=== PATIENT | male | born 1960 | race Caucasian/White ===

== ENCOUNTER 2020-04-11 08:01 | Outpatient (REF) | payer BC, SELFPAY ==
[2020-04-11 11:09] LABS: MANUAL DIFF FLAG NO
[2020-04-11 11:13] LABS: Basophils Percent Auto 0.7 % (0-2); Eosinophils Absolute Auto 0.3 X10*3/uL (0.0-0.4); Eosinophils Percent Auto 4.5 % (0-4); Hematocrit 43.1 % (42-52); Hemoglobin 13.9 g/dl (14.0-18.0); Imm Gran Abs Auto 0.02 X10*3/uL (0.00-0.03); Imm Gran Pct Auto 0.3 % (0.0-0.4); Lymphocytes Absolute Auto 1.5 X10*3/uL (1.2-4.9); Lymphocytes Percent Auto 26.6 % (20-40); Mean Corpuscular HGB Conc 32.3 g/dl (31.0-36.0); Mean Corpuscular Hemoglobin 29.9 pg (27.0-33.0); Mean Corpuscular Volume 92.7 fL (80-98); Mean Platelet Volume 11.1 fL (9.4-12.4); Monocytes Absolute Auto 0.5 X10*3/uL (0.1-1.2); Monocytes Percent Auto 8.3 % (2-11); Neutrophils Absolute Auto 3.5 X10*3/uL (2.0-8.3); Neutrophils Percent Auto 59.6 % (45-73); Platelet Count 182 X10*3/uL (160-400); Red Blood Count 4.65 X10*6/uL (4.60-5.80); Red Cell Distribution Width 13.2 % (11.0-16.0); White Blood Count 5.8 X10*3/uL (4.8-10.8)
[2020-04-11 11:21] LABS: Glucose Urine UA NEG (NEG); Leukocyte Esterase Urine NEG (NEG); Nitrite Urine NEG (NEG); PH 5.5 (5.0-8.0); Specific Gravity - Urine >= 1.030 (1.005-1.025); Urine Blood 1+ (NEG); Urine Ketones NEG (NEG); Urine Protein NEG (NEG-TRACE)
[2020-04-11 11:25] LABS: Appearance Urine CLEAR; Color Urine YELLOW
[2020-04-11 11:33] LABS: Mucus Urine 2+ /LPF; Sperm Urine NOTED; WBC Urine 0-2 /HPF (0-4)
[2020-04-11 11:53] LABS: Alanine Aminotransferase 20 U/L (0-40); Albumin Level 4.2 g/dL (3.5-5.0); Alkaline Phosphatase 59 U/L (39-117); Anion Gap 12 (12-20); Aspartate Amino Transferase 19 U/L (5-37); Bilirubin Total 0.8 mg/dL (0.0-1.0); Blood Urea Nitrogen 15 mg/dL (9-16); Carbon Dioxide 30 mmol/L (22-29); Chloride 104 mmol/L (96-108); Cholesterol 219 mg/dL; Estimated Glomerular Filt Rate > 60; Glucose Fasting 84 mg/dL (60-99); HDL Cholesterol 83 mg/dL; LDL Cholesterol Calculated 117 mg/dl; Potassium 4.1 mmol/l (3.3-5.1); Sodium 142 mmol/L (135-145); Total Protein 6.6 g/dL (6.5-8.0); Triglycerides 97 mg/dL
[2020-04-11 11:56] LABS: Prostate Specific Antigen 0.79 ng/mL (<0.05-4.0); Thyroid Stimulating Hormone 0.84 uIU/mL (0.32-4.0)
== END 2020-04-11 08:02 | disposition home or self-care (01) ==
LOC: HO.HMGCLDS 08:01
PROVIDERS: PCP Internal Medicine; Visit Provider Internal Medicine
DX: E78.00 Pure hypercholesterolemia, unspecified (principal); Z00.00 Encounter for general adult medical examination without abnormal findings
CPT/HCPCS: 36415; 80053; 80061; 81001; 84153; 84443; 85025

== ENCOUNTER 2020-04-20 15:54 | Outpatient (REF) | payer BC, SELFPAY ==
--- NOTE | 2020-04-20 15:58 | XR_ITS ---
EXAMINATION: XR FOOT, RIGHT CLINICAL INFORMATION: S99.929A - Unspecified injury of right foot COMPARISON: None TECHNIQUE: Right foot is imaged in 3 views. FINDINGS: There is suspicion of nondisplaced hairline fracture base fifth metatarsal best appreciated on the lateral view. Recommend correlation with patient's symptoms and clinical exam. There is no distraction or displacement. No dislocation or destructive process. The remainder of the bony structures appear intact. There is borderline posterior calcaneal spur. The retrocalcaneal recess is preserved. The subtalar joint appears normal. XR/XR foot RT min 3V IMPRESSION: Suspect nondisplaced hairline fracture base fifth metatarsal, best appreciated on lateral view. Recommend correlation with patient's symptoms and clinical exam.
== END 2020-04-20 15:55 | disposition home or self-care (01) ==
LOC: HO.HMGCX 15:54
PROVIDERS: PCP Internal Medicine; Visit Provider Nurse Practitioner Family
DX: S99.921A Unspecified injury of right foot, initial encounter (principal); X58.XXXA Exposure to other specified factors, initial encounter; Y93.9 Activity, unspecified; Y92.9 Unspecified place or not applicable; Y99.8 Other external cause status
CPT/HCPCS: 73630

== ENCOUNTER → 2020-04-25 09:31 | Outpatient (BNVA) | payer BC, SELFPAY | PROVIDERS: PCP Internal Medicine; Visit Provider Physician Assistant | DX: Z76.89 Persons encountering health services in other specified circumstances (principal) ==

== ENCOUNTER 2020-09-15 07:38 | Outpatient (REF) | payer BC, SELFPAY ==
[2020-09-16 09:06] LABS: Herpes Simplex Type 1 IgG 2.71 index; Herpes Simplex Type 2 IgG <0.90 index
== END 2020-09-15 07:39 | disposition home or self-care (01) ==
LOC: HO.HMGCLDS 07:38
PROVIDERS: PCP Internal Medicine; Visit Provider Internal Medicine
DX: A60.00 Herpesviral infection of urogenital system, unspecified (principal)
CPT/HCPCS: 36415; 86695; 86696

== ENCOUNTER 2021-04-11 06:03 | Day surgery (SDC) | payer BC, SELFPAY ==
[2021-04-04 14:45] VITALS: BMI 22.2
[2021-04-11 06:39] VITALS: BP 124/76; PULSE 58; RESP 18; TEMP 36.6; O2SAT 98
--- NOTE | 2021-04-11 07:19 | HO.ANESPROP2 ---
FORMERLY [facility] Active Problems Active Problems: All Active Problems (Updated 04/04/21 @ 14:40 by Barbi Yan RN) Foot injury (Acute) Metatarsal fracture (Acute) Past Medical History Medical History Bakers cyst Hyperthermia Inguinal hernia Renal calculi Surgical History Surgical History H/O colonoscopy History of carpal tunnel release Hx of right inguinal hernia repair Hx of tonsillectomy History of Problems with Anesthesia: No Social History Social History Alcohol intake: current Alcohol intake frequency: a few times a week Patient Tobacco Use Status: Never used Tobacco Have you been hit, kicked, punched, or otherwise hurt by someone within the past year? If so, by whom?: No Are you DNR?: No Advance Directives Information Provided: Yes (informational brochure mailed) Advance Directives on File: No Recently lost weight without trying: No Nutrition Risks: No Nutritional Risk Current occupation: professor [employer] Allergies Allergy/AdvReac Type Severity Reaction Status Date / Time cefdinir Allergy Intermediate Unknown Verified 04/20/20 15:18 Exam Exam Date and Time: April 11, 2021 0719 Height,Weight and Vital Signs: Height 5 ft 5.5 in Weight 61.689 kg Last Vital Signs Temp 97.8 F 04/11/21 06:39 Pulse 58 04/11/21 06:39 Resp 18 04/11/21 06:39 BP 124/76 04/11/21 06:39 Pulse Ox 98 04/11/21 06:39 Airway Mallampati Class: II TM Dist: >3cm Neck ROM: Full Heart: RRR Lungs: CTA Assessment and Plan Assessment Anesthesia Assessment: Anesthesia Plan Discussed and Chart Reviewed Final Anesthetic Review History of Problems with Anesthesia: No NPO: Yes ASA Class: II Final Preanesthetic Review: Meds/Allgs Chart Reviewed, Consent Obtained/Reviewed and Anes Risks/Benef Reviewed Patient Risk: Low Procedure Risk: Low Anesthetic Plan Anesthetic Plan: MAC: Disposition: Standard PACU
[2021-04-11] MEDS: Lactated Ringers 1,000 ML 50 ML IVCONT (07:24)
--- NOTE | 2021-04-11 07:30 | MHC.SHP ---
Pre-Procedural Eval Section A Date of Service: 04/11/21 Section B Chief Complaint: screening Details of Present Illness: see H&P no changes Relevant Family History (Specify if Yes): No Relevant Social History: None Present Medications: see Short Stay Collaborative assessment Medical History: No relevant PMH History of Previous Operations: No relevant previous surgery Allergies: Allergies Allergy/AdvReac Type Severity Reaction Status Date / Time cefdinir Allergy Intermediate Unknown Verified 04/20/20 15:18 Review of Systems Sugical H&P ROS: Negative: Constitution, Cardiovascular, Respiratory, Neurological, Psychiatric, Hem-Onc, Allergic/Immunologic, Gastrointestinal, Genitourinary, Musculoskeletal, Integumentary, Endocrine and Eyes/Ears/Nose/Throat Exam Surgical H&P Exam: Normal: HEENT, Normal: Heart, Normal: Lungs, Normal: Extremities, Normal: Abdomen, Normal: Skin and Normal: Neurological Plan Diagnosis/Plan: Unchanged I have reviewed the history and physical and performed a pertinent physical examination on my patient. No changes have occurred unless specified.
--- NOTE | 2021-04-11 08:09 | PM.OP ---
Brief Operative Note Date of Service: 04/11/21 Pre-op diagnosis: screening Post-op diagnosis: same (colon polyp) Procedure: colonoscopy Surgeon: Sd Armstrong Anesthesia: MAC Was an Fourth Hand used for this Procedure?: No Estimated blood loss (mL): 0 Pathology: other (polyp 15 cm) Condition: stable Disposition: PACU
[2021-04-11 08:14] VITALS: BP 123/63; PULSE 80; RESP 18; TEMP 36.2; O2SAT 95
[2021-04-11 08:29] VITALS: BP 125/66; PULSE 53; RESP 18; O2SAT 94
[2021-04-11 08:44] VITALS: BP 124/81; PULSE 55; RESP 18; O2SAT 97
[2021-04-11 08:59] VITALS: BP 126/72; PULSE 50; RESP 17; O2SAT 97
--- NOTE | 2021-04-11 09:57 | OP_ITS ---
SURGEON: Sd Armstrong MD INDICATIONS: Colon cancer screening and prior history of adenomatous colon polyps. PREOPERATIVE DIAGNOSIS: POSTOPERATIVE DIAGNOSIS: PROCEDURE PERFORMED: Colonoscopy to the terminal ileum with snare polypectomy. ESTIMATED BLOOD LOSS: COMPLICATIONS: ANESTHESIA: ASSISTANTS: SPECIMENS: MEDICATIONS: Monitored anesthesia care. DESCRIPTION OF PROCEDURE: History and physical performed. The risks and benefits of the procedure were explained to the patient. Informed consent was obtained. The patient was placed in the left lateral decubitus position. A digital rectal exam was performed and was found to be normal. The Olympus pediatric video colonoscope was introduced into the rectum and advanced to the cecum without difficulty. The cecum was identified by transillumination, palpation, and identification of ileocecal valve. Examination was performed and the scope was removed. He tolerated the procedure well and was taken to recovery area in stable condition. FINDINGS: The terminal ileum was normal. The visualized colonic mucosa was normal. The quality of the prep was good. At 15 cm from the anal verge, was a single 6 mm polyp. This was removed with a snare and recovered via suction. Retroflexed examination showed internal hemorrhoids or moderate in size. IMPRESSION: Colon polyp. RECOMMENDATION: Follow up the biopsy results. MD VIDAL Iyer/BRITTANEY / [id number]
== END 2021-04-11 09:40 | disposition home or self-care (01) ==
PROVIDERS: PCP Internal Medicine; Visit Provider Internal Medicine Gastroenterology
PROC: 0DJD8ZZ Inspection of Lower Intestinal Tract, Via Natural or Artificial Opening Endoscopic (ICD-10-PCS; CPT 45378; principal; 2021-04-11 07:30)
DX: Z12.11 Encounter for screening for malignant neoplasm of colon (principal); Z86.010 Personal history of colon polyps; Z83.71 Family history of colonic polyps; D12.7 Benign neoplasm of rectosigmoid junction; K64.8 Other hemorrhoids; Z87.442 Personal history of urinary calculi
CPT/HCPCS: 45385; 88305

== ENCOUNTER 2021-10-24 06:16 | Outpatient (REF) | payer BC, SELFPAY ==
[2021-10-24 11:29] LABS: MANUAL DIFF FLAG NO
[2021-10-24 11:34] LABS: Appearance Urine CLEAR; Color Urine YELLOW; Glucose Urine UA NEG (NEG); Leukocyte Esterase Urine NEG (NEG); Nitrite Urine NEG (NEG); PH 5.5 (5.0-8.0); Specific Gravity - Urine >= 1.030 (1.005-1.025); Urine Blood TRACE (NEG); Urine Ketones NEG (NEG); Urine Protein NEG (NEG-TRACE)
[2021-10-24 11:50] LABS: Basophils Percent Auto 0.8 % (0-2); Eosinophils Absolute Auto 0.2 X10*3/uL (0.0-0.4); Eosinophils Percent Auto 3.3 % (0-4); Hematocrit 42.8 % (42.0-52.0); Hemoglobin 14.1 g/dl (14.0-18.0); Imm Gran Abs Auto 0.02 X10*3/uL (0.00-0.03); Imm Gran Pct Auto 0.4 % (0.0-0.4); Lymphocytes Absolute Auto 1.9 X10*3/uL (1.2-4.9); Lymphocytes Percent Auto 36.8 % (20-40); Mean Corpuscular HGB Conc 32.9 g/dl (31.0-36.0); Mean Corpuscular Hemoglobin 29.1 pg (27.0-33.0); Mean Corpuscular Volume 88.2 fL (80.0-98.0); Mean Platelet Volume 11.7 fL (9.4-12.4); Monocytes Absolute Auto 0.5 X10*3/uL (0.1-1.2); Neutrophils Absolute Auto 2.5 x10*3/uL (2.0-8.3); Neutrophils Percent Auto 49.7 % (45-73); Platelet Count 175 X10*3/uL (160-400); Red Blood Count 4.85 X10*6/uL (4.60-5.80); Red Cell Distribution Width 13.2 % (11.0-16.0); White Blood Count 5.1 X10*3/uL (4.8-10.8)
[2021-10-24 11:56] LABS: RBC Urine 0-2 /HPF (0); WBC Urine 0 /HPF (0-4)
[2021-10-24 11:57] LABS: Calcium Oxalate Crystals Urine TRACE /LPF; Mucus Urine TRACE /LPF
[2021-10-24 13:01] LABS: Alanine Aminotransferase 18 U/L (0-40); Albumin Level 4.1 g/dL (3.5-5.0); Alkaline Phosphatase 74 U/L (39-117); Anion Gap 11 (12-20); Aspartate Amino Transferase 16 U/L (5-37); Bilirubin Total 0.5 mg/dL (0.0-1.0); Blood Urea Nitrogen 16 mg/dL (9-16); Calcium 8.9 mg/dL (8.4-10.2); Carbon Dioxide 25 mmol/L (22-29); Chloride 106 mmol/L (96-108); Cholesterol 218 mg/dL; Estimated Glomerular Filt Rate > 60; Glucose Fasting 91 mg/dL (60-99); HDL Cholesterol 69 mg/dL; LDL Cholesterol Calculated 123 mg/dl; Potassium 4.1 mmol/L (3.3-5.1); Sodium 138 mmol/L (135-145); Total Protein 6.5 g/dL (6.5-8.0); Triglycerides 131 mg/dL
[2021-10-24 13:21] LABS: Thyroid Stimulating Hormone 1.17 uIU/mL (0.32-4.0); Vitamin D 25-OH Total 30.6 ng/mL (>30)
== END 2021-10-24 06:17 | disposition home or self-care (01) ==
LOC: HO.HMGCLDS 06:16
PROVIDERS: Visit Provider Internal Medicine
DX: Z00.00 Encounter for general adult medical examination without abnormal findings (principal); E78.00 Pure hypercholesterolemia, unspecified; Z12.5 Encounter for screening for malignant neoplasm of prostate
CPT/HCPCS: 36415; 80053; 80061; 81001; 82306; 84153; 84443; 85025

== ENCOUNTER 2022-01-29 13:33 | Outpatient (REF) | payer BC, SELFPAY | END 2022-01-29 13:34 | disposition home or self-care (01) | LOC: HO.SH 13:33 | PROVIDERS: Visit Provider Internal Medicine | DX: Z01.10 Encounter for examination of ears and hearing without abnormal findings (principal); H90.3 Sensorineural hearing loss, bilateral | CPT/HCPCS: 92557; 92567 ==

== ENCOUNTER 2022-09-06 08:15 | Outpatient (REF) | payer BC, SELFPAY ==
--- NOTE | ~2022-09-06 | XR_ITS ---
EXAMINATION: Bilateral hand. CLINICAL INDICATIONS: Pain bilateral fingers. COMPARISON: None. TECHNIQUE: 3 views each hand. FINDINGS: Right hand: There is severe loss of PIP and DIP joint spaces without bony erosive changes. The MCP joint space is normal. No visible acute fracture, dislocation or subluxation seen. Left hand: There is severe loss of PIP and DIP joint space without bony erosive changes. There is mild lateral subluxation deformity DIP joint second digit. The MCP and CMCP joint spaces are maintained normal. No bony erosive changes. No loose bodies. No spurring or fracture. The soft tissues are normal. 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 There is no visible acute fracture or dislocation seen.
--- NOTE | ~2022-09-06 | XR_ITS ---
EXAMINATION: Bilateral hand. CLINICAL INDICATIONS: Pain bilateral fingers. COMPARISON: None. TECHNIQUE: 3 views each hand. FINDINGS: Right hand: There is severe loss of PIP and DIP joint spaces without bony erosive changes. The MCP joint space is normal. No visible acute fracture, dislocation or subluxation seen. Left hand: There is severe loss of PIP and DIP joint space without bony erosive changes. There is mild lateral subluxation deformity DIP joint second digit. The MCP and CMCP joint spaces are maintained normal. No bony erosive changes. No loose bodies. No spurring or fracture. The soft tissues are normal. XR/XR hand RT min 3V IMPRESSION: Degenerative osteoarthritic changes PIP and DIP joints both hands. There is no visible acute fracture or dislocation seen.
[2022-09-06 11:12] LABS: MANUAL DIFF FLAG NO
[2022-09-06 11:26] LABS: Appearance Urine Clear; Color Urine Yellow; Glucose Urine UA Negative (Negative); Leukocyte Esterase Urine Negative (Negative); Nitrite Urine Negative (Negative); PH 6.5 (5.0-9.0); Urine Blood Negative (Negative); Urine Ketones Negative (Negative); Urine Protein Negative (Neg-Trace)
[2022-09-06 11:32] LABS: Bacteria Urine None Seen (None Seen); Hyaline Casts Urine 0-2 /LPF (0-2); Squamous Epithelial Cell Urine 0-2 /HPF (0-2); WBC Urine 0-5 /HPF (0-5)
[2022-09-06 11:34] LABS: Basophils Percent Auto 0.8 % (0-2); Eosinophils Absolute Auto 0.1 X10*3/uL (0.0-0.4); Eosinophils Percent Auto 2.1 % (0-4); Hematocrit 43.3 % (42.0-52.0); Hemoglobin 14.3 g/dl (14.0-18.0); Imm Gran Abs Auto 0.01 X10*3/uL (0.00-0.03); Imm Gran Pct Auto 0.2 % (0.0-0.4); Lymphocytes Absolute Auto 1.6 X10*3/uL (1.2-4.9); Lymphocytes Percent Auto 32.6 % (20-40); Mean Corpuscular Hemoglobin 29.4 pg (27.0-33.0); Mean Corpuscular Volume 88.9 fL (80.0-98.0); Mean Platelet Volume 11.2 fL (9.4-12.4); Monocytes Absolute Auto 0.4 X10*3/uL (0.1-1.2); Monocytes Percent Auto 8.2 % (2-11); Neutrophils Absolute Auto 2.7 x10*3/uL (2.0-8.3); Neutrophils Percent Auto 56.1 % (45-73); Platelet Count 185 X10*3/uL (160-400); Red Blood Count 4.87 X10*6/uL (4.60-5.80); Red Cell Distribution Width 13.1 % (11.0-16.0); White Blood Count 4.8 X10*3/uL (4.8-10.8)
[2022-09-06 12:26] LABS: Erythrocyte Sedimentation Rate 2 MM/HR (0-15)
[2022-09-06 12:37] LABS: Alanine Aminotransferase 19 U/L (0-40); Albumin Level 4.2 g/dL (3.5-5.0); Alkaline Phosphatase 70 U/L (39-117); Anion Gap 10 (12-20); Aspartate Amino Transferase 20 U/L (5-37); Bilirubin Total 0.8 mg/dL (0.0-1.0); Blood Urea Nitrogen 19 mg/dL (9-16); C Reactive Protein < 0.10 mg/dL (< or = 0.50); Calcium 9.7 mg/dL (8.4-10.2); Carbon Dioxide 28 mmol/L (22-29); Chloride 106 mmol/L (96-108); Estimated Glomerular Filt Rate > 60; Glucose Random 82 mg/dL (60-115); Rheumatoid Factor < 13.0 IU/mL (<15.0); Sodium 140 mmol/L (135-145); Total Protein 6.5 g/dL (6.5-8.0)
[2022-09-11 12:19] LABS: Anti Nuclear Antibody Screen NEGATIVE (NEGATIVE)
== END 2022-09-06 08:16 | disposition home or self-care (01) ==
LOC: HO.HMGCX 08:15
PROVIDERS: PCP Internal Medicine; Visit Provider Internal Medicine
DX: M79.645 Pain in left finger(s) (principal); M79.644 Pain in right finger(s)
CPT/HCPCS: 36415; 73130; 80053; 81001; 85025; 85652; 86038; 86140; 86431

== ENCOUNTER 2024-03-21 07:52 | Outpatient (REF) | payer BC, SELFPAY ==
[2024-03-21 11:12] LABS: MANUAL DIFF FLAG NO
[2024-03-21 11:30] LABS: Basophils Absolute Auto 0.1 X10*3/uL (0.0-0.2); Basophils Percent Auto 1.3 % (0-2); Eosinophils Absolute Auto 0.1 X10*3/uL (0.0-0.4); Eosinophils Percent Auto 2.4 % (0-4); Hematocrit 42.2 % (42.0-52.0); Hemoglobin 13.9 g/dl (14.0-18.0); Imm Gran Abs Auto 0.01 X10*3/uL (0.00-0.03); Imm Gran Pct Auto 0.2 % (0.0-0.4); Lymphocytes Absolute Auto 1.6 X10*3/uL (1.2-4.9); Lymphocytes Percent Auto 34.1 % (20-40); Mean Corpuscular HGB Conc 32.9 g/dl (31.0-36.0); Mean Corpuscular Hemoglobin 29.3 pg (27.0-33.0); Mean Corpuscular Volume 88.8 fL (80.0-98.0); Mean Platelet Volume 11.4 fL (9.4-12.4); Monocytes Absolute Auto 0.3 X10*3/uL (0.1-1.2); Monocytes Percent Auto 7.4 % (2-11); Neutrophils Absolute Auto 2.5 x10*3/uL (2.0-8.3); Neutrophils Percent Auto 54.6 % (45-73); Platelet Count 164 X10*3/uL (160-400); Red Blood Count 4.75 X10*6/uL (4.60-5.80); Red Cell Distribution Width 13.1 % (11.0-16.0); White Blood Count 4.6 X10*3/uL (4.8-10.8)
[2024-03-21 11:47] LABS: Alanine Aminotransferase 27 U/L (0-40); Albumin Level 4.2 g/dL (3.5-5.0); Alkaline Phosphatase 59 U/L (39-117); Anion Gap 8 (12-20); Aspartate Amino Transferase 25 U/L (5-37); Bilirubin Total 0.7 mg/dL (0.0-1.0); Blood Urea Nitrogen 16 mg/dL (9-16); Calcium 9.3 mg/dL (8.4-10.2); Carbon Dioxide 30 mmol/L (22-29); Chloride 106 mmol/L (96-108); Cholesterol 199 mg/dL (<200); Estimated Glomerular Filt Rate > 60; Glucose Fasting 86 mg/dL (60-99); HDL Cholesterol 73 mg/dL (>40); LDL Cholesterol Calculated 103 mg/dL (<100); Potassium 3.9 mmol/L (3.3-5.1); Sodium 140 mmol/L (135-145); Total Protein 6.6 g/dL (6.5-8.0); Triglycerides 116 mg/dL (<150)
[2024-03-21 12:00] LABS: PSA,Total (Free>4and<10) 0.52 ng/mL (0.00-4.00)
[2024-03-21 12:20] LABS: Thyroid Stimulating Hormone 1.41 uIU/mL (0.32-4.0); Vitamin D 25-OH Total 34.2 ng/mL (>30)
== END 2024-03-21 07:53 | disposition home or self-care (01) ==
LOC: HO.HMGCLDS 07:52
PROVIDERS: PCP Internal Medicine; Visit Provider Internal Medicine
DX: Z00.00 Encounter for general adult medical examination without abnormal findings (principal); I73.00 Raynaud's syndrome without gangrene; N52.9 Male erectile dysfunction, unspecified; M15.8 Other polyosteoarthritis; R41.3 Other amnesia; Z12.5 Encounter for screening for malignant neoplasm of prostate
CPT/HCPCS: 36415; 80053; 80061; 82306; 84153; 84443; 85025

== ENCOUNTER 2024-11-03 10:35 | Outpatient (AMB) | payer BC, SELFPAY ==
--- NOTE | 2024-11-03 11:07 | A.OFFPC_ITS ---
Vital Signs 11/03/24 11:13 Height 5 ft 4.76 in Weight 139 lb BMI 23.3 BP 122/70 Respiration 16 Pulse 58 Pulse Source Pulse Oximeter Temp 98.0 F Temp Source Temporal Artery Scan Pulse Oximetry (%) 96 Oxygen Delivery Method Room Air Intake Visit Reasons: urinary hesitancy [employer] Supervisor Required: No Accompanied by: Self / Same As Patient Allergies cefdinir Allergy (Intermediate, Verified 11/10/24 08:40) Itching Medication List - Last Reconciled 11/10/24 by Jeff Melgoza MD amlodipine 2.5 mg PO DAILY tadalafil 2.5 mg PO DAILY 90 days tamsulosin (Flomax) 0.4 mg PO DAILY Tobacco use date assessed: 11/03/24 Dental Screening Dental Screen Date: 11/03/24 Did you have a dental visit in the last 12 months?: Yes Did you have a dental problem in the last 6 months where you did not have access to dental care?: No Was dental information given to patient?: Patient has dentist [facility] Medical History Prostatism Renal calculi Bakers cyst Inguinal hernia Hyperthermia Surgical History Hx of tonsillectomy Hx of right inguinal hernia repair H/O colonoscopy (~04/11/21) History of carpal tunnel release Family History Father Diabetes Mother Dementia Social History Housing: House Alcohol intake: current Alcohol intake frequency: a few times a month Patient Tobacco Use Status: Never used Tobacco service: No Current occupational status: employed Cognitive needs: No Hearing needs: No Vision needs: Yes (rx glasses) Questionnaire PHQ-9 Over the last 2 weeks, how often have you been bothered by any of the following problems? 1. Little interest or pleasure in doing things: not at all 2. Feeling down, depressed, or hopeless: not at all 3. Trouble falling or staying asleep, or sleeping too much: not at all 4. Feeling tired or having little energy: not at all 5. Poor appetite or overeating: not at all 6. Feeling bad about yourself - or that you are a failure or have let yourself or your family down: not at all 7. Trouble concentrating on things, such as reading the newspaper or watching television: not at all 8. Moving or speaking so slowly that other people could have noticed. Or the opposite - being so fidgety or restless that you have been moving around a lot more than usual: not at all 9. Thoughts that you would be better off or of hurting yourself in some way: not at all Total score: 0 Depression Screening Interpretation: Negative Depression Screening Done: Yes Source: Developed by Drs. Rolando Calloway, Juliette Mcnamara, Lebron Adames and colleagues, with an educational kashif from [employer]. Thrive Questionnaire Date Thrive assessed: 11/03/24 I am a: Patient What is your living situation today?: I have a steady place to live Within the past 12 months, did the food you bought not last and you didn't have the money to get more?: Never true Within the past 12 months, did you worry whether your food would run out before you got money to buy more?: Never true Do you have trouble paying for medicines?: No Do you have trouble getting transportation to medical appointments?: No Do you have trouble paying your heating and electricity bill?: No Do you have trouble taking care of your child, family member or friend?: No Do you have trouble with day-to-day activities such as bathing, preparing meals, shopping, managing finances, etc.?: No Are you currently unemployed and looking for a job?: No Are you interested in more education?: No Please select the resources that you would like help with: None Currently or been in a relationship where the following occur: No concerns reported THRIVE Score: 0 AUDIT C Alcohol Use Questionnaire (AUDIT-C) 1. How often do you have a drink containing alcohol?: 2-4 times a month 2. How many drinks containing alcohol do you have on a typical day when you are drinking?: 1 or 2 3. How often do you have six or more drinks on one occasion?: Never Total Score: 2 TETE-7 AMB Questionnaire TETE-7 Date TETE - 7 assessed: 11/03/24 Feeling nervous, anxious, or on edge: 0 = Not at all Not being able to stop or control worryin = Not at all Worrying too much about different things: 0 = Not at all Trouble relaxin = Not at all Being so restless that it is hard to sit still: 0 = Not at all Becoming easily annoyed or irritable: 0 = Not at all Feeling afraid as if something awful might happen: 0 = Not at all Total TETE-7 score (0-4 normal; 5-9 mild; 10-14 moderate; 15-21 severe): 0 Source: Developed by Drs. Rolando Calloway, Juliette Mcnamara, Lebron Adames and colleagues, with an educational kashif from [employer]. Physical exam (Primary Care) Vital Signs: Last Vital Signs Temp 98.0 F 11/03/24 11:13 Pulse 58 11/03/24 11:13 Resp 16 11/03/24 11:13 BP 122/70 11/03/24 11:13 Pulse Ox 96 11/03/24 11:13 Oxygen Delivery Method Room Air 11/03/24 11:13 Care Plan Goal for BP management: BP in range BMI result Body Mass Index 23.3 Tobacco/Smoking Status: Tobacco use Status Tobacco use date assessed 11/03/24 11/03/24 11:09 Patient Tobacco Use Status Never used Tobacco 11/03/24 11:20 PHQ-9: PHQ-9 Score PHQ-9: Total score 0 11/03/24 13:33 Depression Screening Interpretation: Negative Thrive Assessment: Date of Thrive Assessment Date Thrive assessed 11/03/24 11/03/24 11:09 Currently or been in a relationship where the following occur: No concerns reported Coding Level of Care Code New Pt Level 4 (16535) Complex EM visit Add On G2211 Diagnoses Prostatism N40.0 Assessment & Plan Assessment & Plan (1) Prostatism: Code(s): N40.0 - Benign prostatic hyperplasia without lower urinary tract symptoms Category: Medical Plan: History of Present Illness - The patient is a 64-year-old male presenting with urinary hesitancy and nocturia. - Reports urinary hesitancy and slow stream for approximately one year, with recent onset of nocturia over the past month or two. - Denies complete urinary retention or significant post-void dribbling. - Currently taking tadalafil daily for erectile dysfunction, which has improved erectile function but decreased orgasm intensity. - Undergoes colonoscopy on a five-year schedule as a preventative measure. - Engages in regular physical activity, including running, biking, and using an elliptical machine. 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 - Exercise: Engages in regular physical activity, including running, biking, and using an elliptical machine. Review of Systems - Genitourinary: Reports urinary hesitancy, slow stream, and nocturia. Denies complete urinary retention or significant post-void dribbling. - Reproductive: Reports erectile dysfunction with decreased orgasm intensity. Physical Exam General: Cooperative and healthy appearing Nutritional Appearance: Well nourished Orientation/consciousness: Patient oriented x3 Limitations: No limitations Head: Normal to inspection General: Appearance normal, both eyes and all related structures Neck: Normal visual inspection Chest: Normal palpation of entire chest wall Respiratory: Normal respiratory effort Neurology: Patient oriented x3 Results Plan 1. Benign Prostatic Hyperplasia - Initiate Flomax (tamsulosin) to improve urinary flow. - Conduct blood work to assess prostate health. 2. Erectile Dysfunction - Continue current tadalafil regimen. Discussion Notes I discussed with the patient the likely diagnosis of benign prostatic hyperplasia and the plan to initiate Flomax to improve urinary flow. We also talked about conducting blood work to assess prostate health. The patient was advised to continue the current tadalafil regimen for erectile dysfunction. We discussed the importance of using the patient portal for communication, especially while the patient is traveling. Patient Instructions - Start taking Flomax as prescribed to improve urinary flow. - Get blood work done today to check prostate health. - Continue taking tadalafil daily as prescribed. - Use the patient portal for communication while traveling. Orders: Orders C Reactive Protein 11/03/24 N40.0 - Benign prostatic hyperplasia without lower urinary tract symptoms Basic Metabolic Panel 11/03/24 N40.0 - Benign prostatic hyperplasia without lower urinary tract symptoms Complete Blood Count no Diff 11/03/24 N40.0 - Benign prostatic hyperplasia wi thout lower urinary tract symptoms Lipid Panel 11/03/24 N40.0 - Benign prostatic hyperplasia without lower urinary tract symptoms Prostate Specific Antigen Scr 11/03/24 N40.0 - Benign prostatic hyperplasia without lower urinary tract symptoms Liver Panel 11/03/24 N40.0 - Benign prostatic hyperplasia without lower urinary tract symptoms UA and rflx microscopic 11/03/24 N40.0 - Benign prostatic hyperplasia without lower urinary tract symptoms Medications: New tamsulosin (Flomax) 0.4 mg PO DAILY 90 caps 1RF tamsulosin (Flomax) 0.4 mg PO DAILY 90 caps 1RF
[2024-11-03 11:13] VITALS: BP 122/70; PULSE 58; RESP 16; TEMP 36.7; O2SAT 96; BMI 23.3
== END 2024-11-03 11:39 | disposition home or self-care (01) ==
LOC: HO.HMCSH 10:35
PROVIDERS: PCP Internal Medicine; Visit Provider Internal Medicine
DX: N40.0 Benign prostatic hyperplasia without lower urinary tract symptoms (principal)